=== PATIENT | female | born 1995 | race Caucasian/White ===

== ENCOUNTER 2017-05-19 19:15 | Observation (INO) | payer MEDICAID ==
[~2017-05-19] VITALS: Ht 160 cm; Wt 91.2 kg
[~2017-05-19 19:15] MED LIST: PREN-55 PO
[2017-05-19] MEDS ORDERED: ACETAMINOPHEN 500MG TABLET PO NR (20:45)
== END 2017-05-19 21:40 | disposition home or self-care (01) ==
LOC: L&D 19:15
PROVIDERS: ADMIT Obstetrics & Gynecology; ATTEND Obstetrics & Gynecology
DX: O36.8130 Decreased fetal movements, third trimester, not applicable or unspecified (principal); Z3A.37 37 weeks gestation of pregnancy
CPT/HCPCS: 76805; 76818; 99281; G0378

== ENCOUNTER 2017-05-23 13:10 | Observation (INO) | payer MEDICAID ==
[~2017-05-23] VITALS: Ht 160 cm; Wt 92.1 kg
== END 2017-05-23 14:55 | disposition home or self-care (01) ==
LOC: L&D 13:10
PROVIDERS: ADMIT Specialist; ATTEND Specialist
DX: O36.8130 Decreased fetal movements, third trimester, not applicable or unspecified (principal); Z3A.38 38 weeks gestation of pregnancy
CPT/HCPCS: 76815; 76818; 99281; G0378

== ENCOUNTER 2017-05-28 19:59 | Observation (INO) | payer MEDICAID ==
[~2017-05-28] VITALS: Ht 162.6 cm; Wt 92.1 kg
[2017-05-28] MEDS ORDERED: PREN-88 PO (20:38)
== END 2017-05-28 23:28 | disposition home or self-care (01) ==
LOC: L&D 19:59
PROVIDERS: ADMIT Obstetrics & Gynecology; ATTEND Obstetrics & Gynecology
DX: O62.9 Abnormality of forces of labor, unspecified (principal); Z3A.38 38 weeks gestation of pregnancy
CPT/HCPCS: 76815; 76818; 99281; G0378

== ENCOUNTER 2017-05-30 14:07 | Observation (INO) | payer MEDICAID ==
[~2017-05-30] VITALS: Ht 162.6 cm; Wt 93.0 kg
[~2017-05-30 14:07] MED LIST changes: +PREN-88 PO
[2017-05-30] MEDS ORDERED: PREN-88 PO (16:47)
== END 2017-05-30 16:50 | disposition home or self-care (01) ==
LOC: L&D 14:07
PROVIDERS: ADMIT Obstetrics & Gynecology; ATTEND Obstetrics & Gynecology
DX: O62.9 Abnormality of forces of labor, unspecified (principal); O26.893 Other specified pregnancy related conditions, third trimester; M54.9 Dorsalgia, unspecified; R51 Headache; N89.8 Other specified noninflammatory disorders of vagina; Z3A.39 39 weeks gestation of pregnancy
CPT/HCPCS: 99281; G0378

== ENCOUNTER 2017-06-01 15:10 | Observation (INO) | payer MEDICAID ==
[~2017-06-01] VITALS: Ht 162.6 cm; Wt 92.5 kg
[2017-06-01 16:12] LABS: CLARITY URINE CLEAR (CLEAR); COLOR URINE YELLOW (YELLOW); KETONES URINE NEGATIVE (NEGATIVE); LEUKOCYTE ESTERASE URINE NEGATIVE (NEGATIVE); NITRITE URINE NEGATIVE (NEGATIVE); OCCULT BLOOD URINE NEGATIVE (NEGATIVE); PROTEIN URINE NEGATIVE (NEGATIVE); SPECIFIC GRAVITY URINE 1.011 (1.005-1.030)
== END 2017-06-01 17:00 | disposition home or self-care (01) ==
LOC: L&D 15:10
PROVIDERS: ADMIT Obstetrics & Gynecology; ATTEND Obstetrics & Gynecology
DX: O62.9 Abnormality of forces of labor, unspecified (principal); O26.893 Other specified pregnancy related conditions, third trimester; R22.9 Localized swelling, mass and lump, unspecified; R30.9 Painful micturition, unspecified; R10.30 Lower abdominal pain, unspecified; Z3A.39 39 weeks gestation of pregnancy
CPT/HCPCS: 81003; 99281; G0378

== ENCOUNTER 2017-06-05 12:36 | Observation (INO) | payer MEDICAID ==
[~2017-06-05] VITALS: Ht 162.6 cm; Wt 92.5 kg
== END 2017-06-05 14:40 | disposition home or self-care (01) ==
LOC: L&D 12:36
PROVIDERS: ADMIT Specialist; ATTEND Specialist
DX: O36.8130 Decreased fetal movements, third trimester, not applicable or unspecified (principal); O48.0 Post-term pregnancy; Z3A.40 40 weeks gestation of pregnancy
CPT/HCPCS: 76815; 76818; 99281; G0378

== ENCOUNTER 2017-06-09 08:02 | Inpatient (IN) | payer MEDICAID ==
[~2017-06-09] VITALS: Ht 162.6 cm; Wt 93.9 kg
[2017-06-09] MEDS ORDERED: MISOPROSTOL 100MCG TABLET VG SCH (10:00)
[2017-06-09] MEDS ORDERED: BUTORPHANOL TARTRATE 2 MG/ML VIAL IV PRN (10:00)
[2017-06-09] MEDS ORDERED: NALOXONE HCL 0.4 MG/ML 1ML VIAL IM PRN (10:00)
[2017-06-09] MEDS ORDERED: CARBOPROST TROMETHAMINE 250 MCG/ML AMPUL IM PRN (10:00)
[2017-06-09] MEDS ORDERED: LIDOCAINE HCL 1% 20ML VIAL (Pyxis) INJ INFIL SCH (10:00)
[2017-06-09] MEDS ORDERED: DINOPROSTONE 10MG VAGINAL INSERT VG ONE (10:00)
[2017-06-09] MEDS ORDERED: METHYLERGONOVINE MALEATE 0.2 MG/ML IM PRN (10:00)
[2017-06-09 10:20] LABS: BASOPHILS % 0.2 % (0.0-2.0); EOSINOPHILS % 1.6 % (0.0-5.0); HEMATOCRIT. 33.4 % (36.0-48.0); HEMOGLOBIN. 11.3 g/dL (12.0-16.0); LYMPHOCYTES % 14.4 % (20.0-50.0); MEAN CORPUSCULAR HEMOGLOBIN 31.7 pg (28.0-32.0); MEAN CORPUSCULAR VOLUME 93.6 fL (81.0-99.0); MEAN PLATELET VOLUME 9.7 fl (7.4-10.4); NEUTROPHILS % 77.8 % (40.0-76.0); PLATELET 203 x1000/uL (130-400); RED BLOOD CELL COUNT 3.57 mill/uL (4.2-5.4)
[2017-06-09 10:21] LABS: CLARITY URINE CLEAR (CLEAR); COLOR URINE YELLOW (YELLOW); GLUCOSE URINE NEGATIVE (NEGATIVE); KETONES URINE NEGATIVE (NEGATIVE); LEUKOCYTE ESTERASE URINE TRACE (NEGATIVE); NITRITE URINE NEGATIVE (NEGATIVE); OCCULT BLOOD URINE NEGATIVE (NEGATIVE); PROTEIN URINE NEGATIVE (NEGATIVE); SPECIFIC GRAVITY URINE 1.014 (1.005-1.030); UROBILINOGEN URINE 0.2 E.U./dL (0.2-1.0)
[2017-06-09] MEDS: LACTATED RINGERS 1,000 ML IV SCH ×3 (10:39→21:03)
[2017-06-09 11:12] LABS: *AMPHETAMINES SCREEN URINE NEGATIVE (NEGATIVE); *BARBITURATES SCREEN URINE NEGATIVE (NEGATIVE); *BENZODIAZEPINES SCREEN URINE NEGATIVE (NEGATIVE); *COCAINE SCREEN URINE NEGATIVE (NEGATIVE); CANNABINOID URINE SCREEN NEGATIVE (NEGATIVE); METHADONE URINE SCREEN NEGATIVE (NEGATIVE); OPIATES URINE SCREEN NEGATIVE (NEGATIVE); PHENCYCLIDINE URINE SCREEN NEGATIVE (NEGATIVE)
[2017-06-09 11:18] LABS: INR 0.9; PARTIAL THROMBOPLASTIN TIME 27.8 sec (24.0-34.0); PROTHROMBIN TIME 9.3 sec
[2017-06-09] MEDS ORDERED: MISOPROSTOL 100MCG TABLET VG PRN (14:00)
[2017-06-09 14:02] LABS: HEPATITIS B SURFACE ANTIGEN NEGATIVE; RUBELLA IGG 49.6 IU/mL (4.99-10)
[2017-06-09] MEDS ORDERED: BUPIVACAINE HCL/NS/PF EPIDURAL 100 ML EP ONE (20:52)
[2017-06-09] MEDS ORDERED: FENTANYL CITRATE/PF 50MCG/ML 2ML VIAL ONE ×2 (20:53→20:54)
[2017-06-09] MEDS ORDERED: BUPIVACAINE HCL/PF 0.25% (2.5MG/ML) 10ML ONE (20:53)
[2017-06-09] MEDS: DEXT 5%/LR + PITOCIN 20UNITS/L 1,000 ML IV SCH (22:39)
[2017-06-09] MEDS ORDERED: BUPIVACAINE HCL/NS/PF EPIDURAL 100 ML EP SCH (23:00)
[2017-06-10] MEDS: DEXT 5%/LR + PITOCIN 20UNITS/L 1,000 ML IV SCH (03:52)
[2017-06-10] MEDS ORDERED: RHO(D) IMMUNE GLOBULIN 300 MCG/SYR IM PRN (04:00)
[2017-06-10] MEDS ORDERED: METHYLERGONOVINE MALEATE 0.2 MG/ML IM PRN (04:00)
[2017-06-10] MEDS ORDERED: DEXT 5%/LR + PITOCIN 20UNITS/L 1,000 ML IV SCH (04:00)
[2017-06-10] MEDS ORDERED: IBUPROFEN 400MG TABLET PO PRN (04:00)
[2017-06-10] MEDS ORDERED: LANOLIN OINT 0.25 GM TUBE TOP PRN (04:00)
[2017-06-10 06:10] VITALS: BP 96/50
[2017-06-10 06:50] VITALS: BP 101/53
[2017-06-10] MEDS: PRENATAL VIT/FE FUMARATE/FA TABLET PO SCH (09:04)
[2017-06-10 19:30] VITALS: BP 111/78
[2017-06-10 20:25] VITALS: BP 110/65
[2017-06-10] MEDS: IBUPROFEN 800MG TABLET PO PRN (20:28)
[2017-06-10] MEDS ORDERED: DOCUSATE SODIUM 100MG CAPSULE PO SCH (21:00)
[2017-06-11] VITALS: BP 97/65
[2017-06-11 07:02] LABS: BASOPHILS % 0.5 % (0.0-2.0); EOSINOPHILS % 1.7 % (0.0-5.0); HEMATOCRIT. 32.1 % (36.0-48.0); HEMOGLOBIN. 11.3 g/dL (12.0-16.0); LYMPHOCYTES % 20.6 % (20.0-50.0); MEAN CORPUSCULAR HEMOGLOBIN 33.2 pg (28.0-32.0); MEAN CORPUSCULAR VOLUME 94.6 fL (81.0-99.0); MEAN PLATELET VOLUME 9.3 fl (7.4-10.4); NEUTROPHILS % 70.2 % (40.0-76.0); PLATELET 205 x1000/uL (130-400); RED BLOOD CELL COUNT 3.39 mill/uL (4.2-5.4)
[2017-06-11 08:00] VITALS: BP 103/52
[2017-06-11] MEDS: PRENATAL VIT/FE FUMARATE/FA TABLET PO SCH (08:53)
[2017-06-11] MEDS: IBUPROFEN 800MG TABLET PO PRN ×2 (08:53→14:51)
== END 2017-06-11 16:30 | disposition home or self-care (01) | DRG 560 ==
LOC: L&D 08:02 → OBSVTOIN 08:02 → L&D 09:30 → 7EST PP/OB 06-10 06:00
PROVIDERS: ADMIT Obstetrics & Gynecology; ATTEND Obstetrics & Gynecology
PROC: 10E0XZZ Delivery of Products of Conception, External Approach (ICD-10-PCS; principal; 2017-06-09)
PROC: 3E0S3CZ (ICD-10-PCS; 2017-06-09)
PROC: 00HU33Z Insertion of Infusion Device into Spinal Canal, Percutaneous Approach (ICD-10-PCS; 2017-06-09)
DX: O48.0 Post-term pregnancy (principal); Z37.0 Single live birth; Z3A.40 40 weeks gestation of pregnancy
CPT/HCPCS: 36415; 80305; 81001; 85025; 85610; 85730; 86592; 86703; 86762; 86850; 86900; 87340; G0378; J2590; J3010; J3490; J7120; A4315